=== PATIENT | female | born 1945 | race Caucasian/White ===

== ENCOUNTER 2024-12-22 13:17 | Emergency (ER) | payer MEDICARE ==
[~2024-12-22] VITALS: Wt 92.5 kg
[~2024-12-22 13:17] MED LIST: ASPIRIN ADULT L81 M2 PO; ATORVASTATIN CA40 M1 PO; BUPROPION HYDR150 M3 PO; DICLOFENAC SOD75 MG PO; DULOXETINE HCL60 MG PO; FEROSUL325 M1 PO; INSULIN LI100 UNIT/2 SQ; LISINOPRIL20 MG PO; LOPRESSOR25 MG PO; PREGABALIN75 MG PO; SYNTHROID,LEV125 MCG PO
[2024-12-22] MEDS ORDERED: LORazepam 1 MG TAB PO ONE (13:40)
[2024-12-22 14:14] LABS: MANUAL DIFF REFLEX YES; MEAN CELL VOLUME 82.4 fl (81.0-99.0); MEAN CORPUSCULAR HGB 26.2 pg (27.0-31.0); MEAN PLATELET VOLUME 10.4 fl (9.6-12.3); NUCLEATED RED BLOOD CELL 0.0 % (0.0-0.0); NUCLEATED RED BLOOD CELL 0.0 10*3/uL (0.0-0.0); PLATELET COUNT AUTOMATED 332 10*3/uL (130-400); RED CELL DISTRI WIDTH 15.4 % (0-14.5)
[2024-12-22 14:43] LABS: BUN 19.0 mg/dl (9-23); SGPT/ALT 37.0 U/L (5-49)
[2024-12-22 14:44] LABS: PLATELET SUFFICIENCY NORMAL (NORMAL)
[2024-12-22] MEDS ORDERED: ATIVAN1 MG PO (15:26)
== END 2024-12-22 15:47 | disposition home or self-care (01) ==
LOC: ED 13:17
PROVIDERS: Emergency Medicine
DX: F41.9 Anxiety disorder, unspecified (principal); R06.02 Shortness of breath; E11.9 Type 2 diabetes mellitus without complications; I10 Essential (primary) hypertension; E78.5 Hyperlipidemia, unspecified; E03.9 Hypothyroidism, unspecified; Z91.041 Radiographic dye allergy status; Z79.82 Long term (current) use of aspirin; Z79.899 Other long term (current) drug therapy; Z90.49 Acquired absence of other specified parts of digestive tract; Z96.653 Presence of artificial knee joint, bilateral